=== PATIENT | female | born 1945 | race Caucasian/White ===

== ENCOUNTER 2018-10-31 20:22 | Inpatient (IN) | payer MEDICARE ==
[~2018-10-31] VITALS: Ht 157.5 cm; Wt 86.4 kg
[2018-10-31 21:15] LABS: BASOPHILS # (AUTO) 0.05 x10^3/uL (0-0.1); BASOPHILS % (AUTO) 1 % (0-1); EOSINOPHILS # (AUTO) 0.27 x10^3/uL (0-0.4); EOSINOPHILS % (AUTO) 3 % (1-7); LYMPHOCYTES % (AUTO) 19 % (22-44); MD NO; MEAN CORPUSCULAR HEMOGLOBIN 29.6 pg (27.0-34.8); MEAN CORPUSCULAR VOLUME 89.9 fL (80-100); MEAN PLATELET VOLUME 8.6 fL (7.4-10.4); MONOCYTES # (AUTO) 0.73 x10^3/uL (0.2-0.8); MONOCYTES % (AUTO) 9 % (2-9); NEUTROPHILS # (AUTO) 5.52 x10^3/uL (1.8-6.8); NEUTROPHILS % (AUTO) 69 % (42-75); PLATELET COUNT 333 x10^3/uL (130-400); RED BLOOD COUNT 4.25 x10^6/uL (3.82-5.3); RED CELL DISTRIBUTION WIDTH 14.1 % (9.6-15.2)
[2018-10-31 21:24] LABS: ALANINE AMINOTRANSFERASE 33 U/L (12-78); ALBUMIN 3.6 g/dL (3.4-5.0); ANION GAP 6 mmol/L (5-15); CALCIUM 8.2 mg/dL (8.5-10.1); CHLORIDE 109 mmol/L (98-107); CREATININE 1.06 mg/dL (0.55-1.02); INTERNATIONAL NORMALIZED RATIO 1.01 (0.93-1.1); PROTHROMBIN TIME 10.6 Seconds (9.6-11.5)
[2018-10-31 21:29] LABS: ALKALINE PHOSPHATASE 71 U/L (45-117); BILIRUBIN,TOTAL 0.2 mg/dL (0.2-1.0); TOTAL PROTEIN 7.3 g/dL (6.4-8.2); TROPONIN I < 0.015 ng/mL (0.000-0.045)
--- NOTE | 2018-10-31 21:40 | NUR ---
Pt resting comfortably in [facility] at this time. Erp at bs. Pt verbalizes understanding of er process and poc. Pt has call light within reach at this time.
--- NOTE | 2018-10-31 22:15 | NUR ---
pt ambulates to restroom with steady gait.
--- NOTE | 2018-10-31 23:20 | NUR ---
Report of pt to Allegra Dominique. All questions answered.
[2018-10-31] MEDS ORDERED: ONDANSETRON ODT 4 MG PO PRN (23:30)
[2018-10-31] MEDS ORDERED: ACETAMINOPHEN 325 MG TABLET PO PRN (23:30)
[2018-10-31] MEDS ORDERED: BISACODYL 10 MG SUPP PR PRN (23:30)
[2018-10-31] MEDS ORDERED: methylPREDNISolone 4mg DOSE PACK PO SCH (23:30)
[2018-10-31] MEDS ORDERED: POLYETHYLENE GLYCOL 17 GM PACKET PO PRN (23:30)
[2018-10-31 23:45] VITALS: BP 148/76
[2018-10-31] MEDS: BENZONATATE 100 MG CAPSULE PO PRN (23:58)
[2018-11-01] MEDS ORDERED: ROSU20TA2 PO (01:28)
[2018-11-01] MEDS ORDERED: HYDR25TA6 PO (01:28)
[2018-11-01] MEDS ORDERED: ASPI-515 PO (01:28)
[2018-11-01] MEDS ORDERED: LOSA100T14 PO (01:28)
[2018-11-01] MEDS ORDERED: TRAZ50TA66 PO (01:28)
[2018-11-01] MEDS ORDERED: METO25TA91 PO (01:28)
[2018-11-01] MEDS ORDERED: METO-95 PO (01:28)
[2018-11-01] MEDS ORDERED: LORA1TAB PO (01:41)
[2018-11-01] MEDS ORDERED: MOME15CR TP (01:41)
[2018-11-01] MEDS ORDERED: FLUT15.88 NAS (01:41)
[2018-11-01 03:14] VITALS: BP 124/83
[2018-11-01] MEDS ORDERED: METOPROLOL SUCCINATE 25 MG TAB.ER.24H PO SCH (04:06)
[2018-11-01] MEDS ORDERED: FLUTICASONE NASAL SPRAY 16GM NAS PRN (04:30)
[2018-11-01] MEDS ORDERED: LORazepam 1MG TABLET PO PRN (04:30)
[2018-11-01 06:39] VITALS: BP 113/72
[2018-11-01] MEDS: METOPROLOL SUCCINATE 25 MG TAB.ER.24H PO SCH ×3 (06:46→09:21)
[2018-11-01] MEDS ORDERED: METOPROLOL SUCCINATE 100 MG TAB.ER.24H PO SCH (07:00)
[2018-11-01] MEDS ORDERED: SENNA/DOCUSATE TABLET PO SCH (09:00)
[2018-11-01] MEDS ORDERED: ASPIRIN 81 MG TABLET EC PO SCH (09:00)
[2018-11-01] MEDS ORDERED: LOSARTAN 50MG TABLET PO SCH (09:00)
[2018-11-01] MEDS ORDERED: HYDROCHLOROTHIAZIDE 25 MG TABLET PO SCH (09:00)
[2018-11-01] MEDS ORDERED: GUAI-103 PO (10:51)
[2018-11-01] MEDS ORDERED: BENZ-17 PO (10:51)
[2018-11-01] MEDS ORDERED: ALBU90AE INH (10:51)
[2018-11-01] MEDS ORDERED: METH4TAB PO (10:51)
[2018-11-01 11:52] LABS: RAPID INFLUENZA A Negative (Negative); RAPID INFLUENZA B Negative (Negative)
[2018-11-01] MEDS: BENZONATATE 100 MG CAPSULE PO PRN (12:11)
[2018-11-01] MEDS ORDERED: ATORVASTATIN 40 MG TABLET PO SCH (21:00)
[2018-11-01] MEDS ORDERED: TRAZODONE 50MG TABLET PO SCH (21:00)
== END 2018-11-01 12:31 | disposition home or self-care (01) | DRG 202 ==
LOC: ED 21:39 → EDIP 23:15 → 5SO 23:40
PROVIDERS: ADMIT Family Medicine; ATTEND Family Medicine
PROC: 5A09357 Assistance with Respiratory Ventilation, Less than 24 Consecutive Hours, Continuous Positive Airway Pressure (ICD-10-PCS; principal; 2018-11-01)
DX: J20.8 Acute bronchitis due to other specified organisms (principal); I42.9 Cardiomyopathy, unspecified; N17.9 Acute kidney failure, unspecified; F17.200 Nicotine dependence, unspecified, uncomplicated; N18.9 Chronic kidney disease, unspecified; I12.9 Hypertensive chronic kidney disease with stage 1 through stage 4 chronic kidney disease, or unspecified chronic kidney disease; G47.33 Obstructive sleep apnea (adult) (pediatric); J20.9 Acute bronchitis, unspecified; K58.9 Irritable bowel syndrome, unspecified; Z82.49 Family history of ischemic heart disease and other diseases of the circulatory system; Z90.710 Acquired absence of both cervix and uterus; Z87.11 Personal history of peptic ulcer disease; Z88.0 Allergy status to penicillin; Z88.2 Allergy status to sulfonamides; Z88.8 Allergy status to other drugs, medicaments and biological substances
CPT/HCPCS: 36415; 71046; 80053; 83690; 83880; 84484; 85025; 85379; 85610; 85730; 87400; 93005; 94660; 99285; G0378; J7509